=== PATIENT | female | born 1995 | race African-American/Black ===

== ENCOUNTER 2020-01-20 09:12 | Emergency (ER) | payer OTHER ==
[~2020-01-20] VITALS: Ht 172.7 cm; Wt 113.4 kg
[2020-01-20] MEDS ORDERED: AMOXICILLIN500 MG PO (10:28)
[2020-01-20] MEDS ORDERED: PREDNISONE 20 MG TAB PO ONE (10:30)
[2020-01-20] MEDS ORDERED: PREDNISONE 20 MG TAB ONE (10:35)
[2020-01-20] MEDS ORDERED: MEDROL4 MG PO (10:37)
== END 2020-01-20 10:47 | disposition home or self-care (01) ==
LOC: FSED 09:12
DX: J03.01 Acute recurrent streptococcal tonsillitis (principal)
CPT/HCPCS: 83518; 99282; J7512